=== PATIENT | male | born 1970 | race Caucasian/White ===

== ENCOUNTER 2018-02-22 20:10 | Emergency (ER) | payer OTHER ==
[~2018-02-22] VITALS: Ht 170.2 cm; Wt 89.8 kg
[2018-02-22 20:31] VITALS: BP 148/89; PULSE 67; RESP 18; TEMP 98.3; O2SAT 96
[2018-02-22] MEDS ORDERED: BACT800T5 PO (20:54)
[2018-02-22] MEDS ORDERED: TETANUS/DIPHTHERIA TOXOID ADULT 0.5 ML VIAL IM ONE (21:00)
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
== END 2018-02-22 21:20 | disposition home or self-care (01) ==
LOC: PHEFT 20:10
DX: S61.253A Open bite of left middle finger without damage to nail, initial encounter (principal); S51.851A Open bite of right forearm, initial encounter; Y04.1XXA Assault by human bite, initial encounter; Y92.59 Other trade areas as the place of occurrence of the external cause; Z23 Encounter for immunization
CPT/HCPCS: 90471; 90714